=== PATIENT | female | born 1975 | race Native Hawaiian/Other Pacific Islander ===

== ENCOUNTER 2016-11-01 09:22 | Emergency (ER) | payer OTHER ==
[~2016-11-01] VITALS: Ht 170.2 cm; Wt 75.3 kg
[~2016-11-01 09:22] MED LIST: ASPIRIN LOW81 MG OR; CLOP75TA2 PO; GABA300C2 PO; LOTENSIN HCT1 TA1 PO; METO50TA27 PO
[2016-11-01 09:37] VITALS: BP 159/99
[2016-11-01 10:23] LABS: POTASSIUM 3.5 mmol/L (3.6-5.2); SODIUM 136 mmol/L (136-145)
[2016-11-01 10:31] LABS: PLATELET COUNT 361 K/uL (152-353)
[2016-11-01] MEDS ORDERED: LISITAB PO (12:36)
[2016-11-01] MEDS ORDERED: SITAVIG50 MG BU (12:38)
[2016-11-01] MEDS ORDERED: PRED20TA27 PO (12:39)
[2016-11-01 12:42] VITALS: TEMP 98
== END 2016-11-01 12:52 | disposition home or self-care (01) ==
LOC: ED 09:22
PROVIDERS: Emergency Medicine
DX: G51.0 Bell's palsy (principal)
CPT/HCPCS: 36415; 80053; 80307; 81025; 85027; 96374; 99284; G0479; J2060

== ENCOUNTER 2016-12-05 13:15 | Outpatient (CLI) | payer OTHER ==
[~2016-12-05 13:15] MED LIST changes: +LISITAB PO; +PRED20TA27 PO; +SITAVIG50 MG BU
== END 2016-12-05 19:28 | disposition home or self-care (01) ==
LOC: RESP 13:15
DX: R56.9 Unspecified convulsions (principal)

== ENCOUNTER 2017-03-31 10:45 | Observation (INO) | payer SELFPAY ==
[~2017-03-31] VITALS: Ht 170.2 cm; Wt 82.8 kg
--- NOTE | 2017-03-31 11:00 | NUR ---
PATIENT ARRIVED A DIRECT ADMIT FROM DR. STALEY. ORDERS NOTED AND CARRIED OUT. ADMISSION ASSESSMENT AND PHYSICAL COMPLETED. PATIENT DENIES CHEST PAIN, NO COMPLAINTS AT THIS TIME. PATIENT ORIENTED TO ROOM AND CALL SYSTEM AND INSTRUCTED TO CALL FOR ASSISTANCE IF NEEDED.
[2017-03-31 11:01] VITALS: BP 171/96; TEMP 99; Ht 170.2 cm; Wt 82.8 kg
[2017-03-31] MEDS ORDERED: PAXIL10 MG PO (11:10)
[2017-03-31 11:59] LABS: PLATELET COUNT 411 K/uL (152-353)
[2017-03-31 12:00] VITALS: BP 171/96; TEMP 99
[2017-03-31 13:06] LABS: POTASSIUM 3.7 mmol/L (3.6-5.2); SODIUM 134 mmol/L (136-145)
[2017-03-31 14:21] LABS: PARTIAL THROMBOPLASTIN TIME 27.9 SECONDS (24.5-33.6)
[2017-03-31 16:00] VITALS: BP 104/60; TEMP 97.6
[2017-03-31 20:25] VITALS: BP 106/55; TEMP 98.1
[2017-04-01] VITALS: BP 123/79; TEMP 97.5
[2017-04-01 04:00] VITALS: BP 123/79; TEMP 98.5
[2017-04-01 08:00] VITALS: BP 148/79; TEMP 98.5
[2017-04-01 12:00] VITALS: BP 114/71; TEMP 97.9
== END 2017-04-01 14:15 | disposition home or self-care (01) ==
LOC: MED/SURG 10:45
PROVIDERS: ADMIT Family Medicine
DX: R07.89 Other chest pain (principal); I49.9 Cardiac arrhythmia, unspecified
CPT/HCPCS: 36415; 80053; 82550; 84484; 85027; 85610; 85730; 93005; 94760; 96372; 99220; G0378; G0379; J1650

== ENCOUNTER 2020-05-02 13:00 | Emergency (ER) | payer OTHER ==
[~2020-05-02] VITALS: Ht 162.6 cm; Wt 77.1 kg
[~2020-05-02 13:00] MED LIST changes: +PAXIL10 MG PO
[2020-05-02 15:01] LABS: PLATELET COUNT 403 K/uL (152-353)
[2020-05-02 15:12] LABS: POTASSIUM 3.6 mmol/L (3.6-5.2); SODIUM 138 mmol/L (136-145)
[2020-05-02 17:19] VITALS: BP 122/80; TEMP 98.6
== END 2020-05-02 17:20 | disposition home or self-care (01) ==
LOC: ED 13:52
PROVIDERS: Emergency Medicine
DX: R07.89 Other chest pain (principal)
CPT/HCPCS: 36600; 80053; 82550; 82553; 82805; 83605; 84484; 85027; 85379; 87040; 93005; 96360; 96365; 96374; 96375; 99283; 99284; J0456; J1100

== ENCOUNTER 2020-05-11 14:52 | Outpatient (CLI) | payer OTHER | END 2020-05-11 23:07 | disposition home or self-care (01) | LOC: RAD 14:52 | DX: U07.1 COVID-19 (principal) ==

== ENCOUNTER 2020-05-25 11:49 | Outpatient (CLI) | payer OTHER | END 2020-05-25 19:21 | disposition home or self-care (01) | LOC: RAD 11:49 | DX: R05 Cough (principal) ==

== ENCOUNTER 2020-08-04 15:05 | Emergency (ER) | payer OTHER ==
[~2020-08-04] VITALS: Ht 162.6 cm; Wt 77.1 kg
[2020-08-04 15:47] LABS: PLATELET COUNT 446 K/uL (152-353)
[2020-08-04 15:56] LABS: POTASSIUM 3.5 mmol/L (3.6-5.2)
[2020-08-04 16:09] LABS: PARTIAL THROMBOPLASTIN TIME 27.8 SECONDS (24.5-33.6)
[2020-08-04 23:18] VITALS: BP 135/82; TEMP 98.2
== END 2020-08-04 23:18 | disposition home or self-care (01) ==
LOC: ED 15:05
PROVIDERS: Family Medicine
DX: I69.328 Other speech and language deficits following cerebral infarction (principal); E87.6 Hypokalemia
CPT/HCPCS: 80053; 81000; 85027; 85610; 85730; 93005; 99283

== ENCOUNTER 2020-09-29 15:53 | Emergency (ER) | payer OTHER ==
[~2020-09-29] VITALS: Ht 170.2 cm; Wt 90.7 kg
[2020-09-29 16:40] LABS: PLATELET COUNT 500 K/uL (152-353)
[2020-09-29 16:47] LABS: POTASSIUM 3.4 mmol/L (3.6-5.2)
[2020-09-29 17:09] LABS: PARTIAL THROMBOPLASTIN TIME 26.3 SECONDS (24.5-33.6)
[2020-09-29 20:10] VITALS: BP 105/60
== END 2020-09-29 20:10 | disposition home or self-care (01) ==
LOC: ED 15:56
PROVIDERS: Family Medicine
DX: G45.9 Transient cerebral ischemic attack, unspecified (principal); M79.18 Myalgia, other site
CPT/HCPCS: 36415; 80053; 81000; 84484; 85027; 85610; 85730; 93005; 99283

== ENCOUNTER 2020-10-22 10:31 | Outpatient (CLI) | payer OTHER | END 2020-10-22 19:51 | disposition home or self-care (01) | LOC: RAD 10:31 | PROVIDERS: ATTEND Nurse Practitioner Family | DX: M54.12 Radiculopathy, cervical region (principal) ==

== ENCOUNTER 2020-11-14 16:52 | Emergency (ER) | payer OTHER ==
[~2020-11-14] VITALS: Ht 170.2 cm; Wt 90.7 kg
[2020-11-14 20:35] VITALS: BP 153/98; TEMP 97.9
== END 2020-11-14 20:35 | disposition home or self-care (01) ==
LOC: ED 16:52
PROC: 2W3LX1Z Immobilization of Right Lower Extremity using Splint (ICD-10-PCS; principal; 2020-11-14)
DX: S86.811A Strain of other muscle(s) and tendon(s) at lower leg level, right leg, initial encounter (principal); Y93.01 Activity, walking, marching and hiking; Y92.512 Supermarket, store or market as the place of occurrence of the external cause
CPT/HCPCS: 96372; 96374; 99283; J1885

== ENCOUNTER 2021-01-16 22:35 | Emergency (ER) | payer OTHER ==
[~2021-01-16] VITALS: Ht 170.2 cm; Wt 95.3 kg
[2021-01-16 23:00] LABS: PLATELET COUNT 470 K/uL (152-353)
[2021-01-16 23:08] LABS: POTASSIUM 3.6 mmol/L (3.6-5.2); SODIUM 138 mmol/L (136-145)
[2021-01-16 23:29] LABS: PARTIAL THROMBOPLASTIN TIME 27.2 SECONDS (24.5-33.6)
[2021-01-17 01:15] VITALS: BP 103/66
== END 2021-01-17 01:15 | disposition home or self-care (01) ==
LOC: ED 22:35
PROVIDERS: Family Medicine
DX: R41.82 Altered mental status, unspecified (principal); F41.8 Other specified anxiety disorders; R07.89 Other chest pain
CPT/HCPCS: 36415; 80053; 82550; 84484; 85027; 85379; 85610; 85730; 93005; 99284